=== PATIENT | male | born 1960 | race Caucasian/White ===

== ENCOUNTER 2018-11-22 11:49 | Emergency (ER) | payer SELFPAY ==
--- NOTE | 2018-11-22 11:56 | EDM.PDOC ---
ED HPI GENERAL MEDICAL PROBLEM - General Chief Complaint: Back Pain or Injury Stated Complaint: BACK AND KNEE PAIN Time Seen by Provider: 11/22/18 11:56 Source of Information: Reports: Patient - History of Present Illness INITIAL COMMENTS - FREE TEXT/NARRATIVE: HISTORY AND PHYSICAL: History of present illness Patient was seen by the mid-level there is another signed note timed for 15 minutes after this note leave Radha Lopes saw the patient. back, right knee Pain Score (Numeric/FACES): 7 - Related Data Allergies Allergy/AdvReac Type Severity Reaction Status Date / Time No Known Allergies Allergy Verified 11/22/18 12:07 Home Meds: Home Meds . [No Known Home Meds] 11/22/18 [History] Course - Vital Signs Last Recorded V/S: Last Vital Signs Temp 97.2 F 11/22/18 12:07 Pulse 66 11/22/18 13:48 Resp 18 11/22/18 13:48 BP 156/90 H 11/22/18 13:48 Pulse Ox 98 11/22/18 13:48 - Orders/Labs/Meds Meds: Medications Discontinued Medications Generic Name Dose Route Start Last Admin Trade Name Pam PRN Reason Stop Dose Admin Clonidine HCl 0.1 mg 11/22/18 12:25 11/22/18 12:39 Catapres PO 11/22/18 12:26 0.1 mg NOW STA Administration Ketorolac Tromethamine 60 mg 11/22/18 12:25 11/22/18 12:38 Toradol IM 11/22/18 12:26 60 mg ONETIME ONE Administration Departure - Departure Disposition: Home, Self-Care 01 Clinical Impression: Right knee pain, Low back pain - Discharge Information Instructions: Knee Pain, Adult, Acute Back Pain, Adult Referrals: PCP,None [Primary Care Provider] - Forms: ED Department Discharge Additional Instructions: The following information is given to patients seen in the emergency department who are being discharged to home. This information is to outline your options for follow-up care. We provide all patients seen in our emergency department with a follow-up referral. The need for follow-up, as well as the timing and circumstances, are variable depending upon the specifics of your emergency department visit. If you don't have a primary care physician on staff, we will provide you with a referral. We always advise you to contact your personal physician following an emergency department visit to inform them of the circumstance of the visit and for follow-up with them and/or the need for any referrals to a consulting specialist. The emergency department will also refer you to a specialist when appropriate. This referral assures that you have the opportunity for follow-up care with a specialist. All of these measure are taken in an effort to provide you with optimal care, which includes your follow-up. Under all circumstances we always encourage you to contact your private physician who remains a resource for coordinating your care. When calling for follow-up care, please make the office aware that this follow-up is from your recent emergency room visit. If for any reason you are refused follow-up, please contact the [facility] Emergency Department at and asked to speak to the emergency department charge nurse. [facility] [address] [place] [address] [place] [address] [facility] Professional [address] [place] [address] 1. Take medication as prescribed. Rest, ice, elevate the affected extremity. You can apply ice and/or heat 15 minutes on, 15 minutes off. 2. Tylenol as directed for pain management or discomfort. 3. Follow up with the Orthopedic provider/primary care provider as discussed. Return to the ED as needed and as discussed.
[2018-11-22] MEDS ORDERED: Ketorolac 60 MG/2 ML SDV IM ONE (12:25)
[2018-11-22] MEDS ORDERED: cloNIDine 0.1 MG Tab PO STA (12:25)
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
--- NOTE | 2018-11-22 13:32 | CR ---
HISTORY: Knee pain for 6 months. FINDINGS: Three views of the right knee are provided. There is mild joint space narrowing seen in the medial and patellofemoral compartments consistent with mild articular cartilage loss. Small osteophyte is noted of the superior margin of the patella on the lateral view. No findings for fracture, dislocation, effusion or loose body. IMPRESSION: Likely early developing osteoarthritic change of the medial and patellofemoral compartments. No findings for fracture. Dictated by Claudio Douglas MD @ Nov 22 2018 1:29PM Signed by Dr. Claudio Douglas @ Nov 22 2018 1:30PM
--- NOTE | 2018-11-22 13:34 | CR ---
HISTORY: Back pain for several days. FINDINGS: Three views of the lumbar spine are provided. Alignment appears anatomic. Degenerative disc disease is seen throughout the lumbar spine with the exception of L4/5. Prominent osteophytes are noted throughout the lower thoracic spine extending down to L3. No findings for fracture or subluxation. IMPRESSION: Negative study for fracture. Dictated by Claudio Douglas MD @ Nov 22 2018 1:32PM Signed by Dr. Claudio Douglas @ Nov 22 2018 1:32PM
== END 2018-11-22 13:47 | disposition home or self-care (01) ==
LOC: MW.ED 11:49
DX: M54.5 Low back pain (principal); M25.561 Pain in right knee; I10 Essential (primary) hypertension; Z98.890 Other specified postprocedural states; X50.1XXA Overexertion from prolonged static or awkward postures, initial encounter; Y99.0 Civilian activity done for income or pay
CPT/HCPCS: 72100; 73562; 96372; 99283; A9270; J1885